=== PATIENT | female | born 1970 | race Two or more races ===

== ENCOUNTER 2022-04-21 05:37 | Day surgery (SDC) | payer OTHER ==
[~2022-04-21] VITALS: Ht 167.6 cm; Wt 82.1 kg
[~2022-04-21 05:37] MED LIST: CLIMARA1 EAC2 TD
== END 2022-04-21 16:35 | disposition home or self-care (01) ==
LOC: CIR.AMB 05:37
PROVIDERS: ATTEND Colon & Rectal Surgery
DX: K64.8 Other hemorrhoids (principal); K64.4 Residual hemorrhoidal skin tags; K92.2 Gastrointestinal hemorrhage, unspecified; Z88.6 Allergy status to analgesic agent; Z20.822 Contact with and (suspected) exposure to COVID-19